=== PATIENT | male | born 1985 | race Caucasian/White ===

== ENCOUNTER 2016-10-24 03:36 | Emergency (ER) | payer OTHER ==
[~2016-10-24] VITALS: Ht 193 cm; Wt 99.6 kg
[2016-10-24 04:18] LABS: HEMATOCRIT 42.4 % (38.0-50.0); MCH 29.4 PG (29.0-34.0); MCHC 34.7 G/DL (30.0-36.0); MCV 84.8 FL (86-99); MEAN PLAT.VOLUME 9.1 uM^3 (9.0-12.4); PLATELET COUNT 271 K/uL (156-360); RBC DIS.WIDTH-CV 12.1 % (11.8-14.6); RBC DIS.WIDTH-SD 36.5 % (39-53); WHITE BLOOD COUNT 8.1 K/uL (4.1-10.2)
[2016-10-24 04:32] LABS: CHLORIDE 106 mEq/L (99-109); POTASSIUM 3.1 mEq/L (3.7-5.4); SODIUM 140 mEq/L (136-147)
[2016-10-24 04:33] LABS: GLUCOSE 92 mg/dL (70-99)
[2016-10-24 04:35] LABS: ANION GAP 14 MEQ/L (2-14)
[2016-10-24 04:37] LABS: GFR ESTIMATE (CALCULATED) > 59 mL/min/
[2016-10-24 04:38] LABS: UREA NITROGEN (BUN) 7 mg/dL (9-23)
[2016-10-24] MEDS ORDERED: VALIUM5 MG PO (05:21)
[2016-10-24 05:29] VITALS: BP 137/82
== END 2016-10-24 05:31 | disposition home or self-care (01) ==
LOC: EME 03:36
PROVIDERS: Emergency Medicine
DX: G40.909 Epilepsy, unspecified, not intractable, without status epilepticus (principal); F41.9 Anxiety disorder, unspecified
CPT/HCPCS: 80048; 80185; 85027; 99281; 99285; J3360; J7030

== ENCOUNTER 2016-11-01 05:09 | Emergency (ER) | payer OTHER ==
[~2016-11-01] VITALS: Ht 193 cm; Wt 97.9 kg
[~2016-11-01 05:09] MED LIST: VALIUM5 MG PO
[2016-11-01 07:18] LABS: BASOPHIL COUNT 0.1 K/uL (0-0.1); EOSINOPHIL (%) 3.5 % (0-5); EOSINOPHIL COUNT 0.3 K/uL (0-0.3); HEMATOCRIT 44.9 % (38.0-50.0); IMMATURE GRANULOCYTE (%) 0.3 % (0.0-0.7); INSTRUMENT ABS NEUTROPHIL CT 4.2 K/uL; LYMPHOCYTE COUNT 2.3 K/uL (1.0-2.8); MCH 29.3 PG (29.0-34.0); MCHC 34.7 G/DL (30.0-36.0); MCV 84.4 FL (86-99); MEAN PLAT.VOLUME 9.6 uM^3 (9.0-12.4); MONOCYTE (%) 7.2 % (3-12); MONOCYTE COUNT 0.5 K/uL (0-0.8); NEUTROPHIL (%) 56.6 % (45-76); NEUTROPHIL COUNT 4.2 K/uL (1.8-6.4); PLATELET COUNT 285 K/uL (156-360); RBC DIS.WIDTH-CV 12.1 % (11.8-14.6); RBC DIS.WIDTH-SD 36.9 % (39-53); RED BLOOD COUNT 5.32 M/uL (4.00-5.50); WHITE BLOOD COUNT 7.4 K/uL (4.1-10.2)
[2016-11-01 07:45] LABS: ANION GAP 8 MEQ/L (2-14); CHLORIDE 105 MEQ/L (99-109); POTASSIUM 3.5 MEQ/L (3.7-5.4); SAMPLE HEMOLYSIS CHECK 0; SAMPLE ICTERIC CHECK 0; SAMPLE LIPEMIA CHECK 0; SODIUM 138 MEQ/L (136-147)
[2016-11-01 07:50] LABS: GFR ESTIMATE (CALCULATED) > 59 mL/min/; GLUCOSE 86 mg/dL (70-99); UREA NITROGEN (BUN) 10 mg/dL (9-23)
[2016-11-01 10:32] VITALS: BP 118/94
[2016-11-01] MEDS ORDERED: VALIUM10 MG PO (17:21)
== END 2016-11-01 10:33 | disposition home or self-care (01) ==
LOC: EME 05:09
PROVIDERS: Emergency Medicine
DX: R56.9 Unspecified convulsions (principal)
CPT/HCPCS: 80048; 80185; 85025; 99281; 99284

== ENCOUNTER 2016-11-01 15:54 | Emergency (ER) | payer OTHER ==
[~2016-11-01] VITALS: Ht 193 cm; Wt 99.6 kg
[2016-11-01 16:28] LABS: HEMATOCRIT 45.9 % (38.0-50.0); MCH 29.8 PG (29.0-34.0); MCHC 35.1 G/DL (30.0-36.0); MEAN PLAT.VOLUME 9.3 uM^3 (9.0-12.4); PLATELET COUNT 317 K/uL (156-360); RBC DIS.WIDTH-CV 12.2 % (11.8-14.6); RBC DIS.WIDTH-SD 37.5 % (39-53)
[2016-11-01 16:38] LABS: CHLORIDE 103 mEq/L (99-109); SODIUM 138 mEq/L (136-147)
[2016-11-01 16:39] LABS: GLUCOSE 89 mg/dL (70-99)
[2016-11-01 16:41] LABS: ANION GAP 9 MEQ/L (2-14)
[2016-11-01 16:43] LABS: GFR ESTIMATE (CALCULATED) > 59 mL/min/
[2016-11-01 16:44] LABS: UREA NITROGEN (BUN) 10 mg/dL (9-23)
[2016-11-01] MEDS ORDERED: VALIUM10 MG PO (17:21)
[2016-11-01 17:31] VITALS: BP 131/93
== END 2016-11-01 17:46 | disposition home or self-care (01) ==
LOC: EME 15:54
PROVIDERS: Emergency Medicine
PROC: 0HQ0XZZ Repair Scalp Skin, External Approach (ICD-10-PCS; principal; 2016-11-01)
DX: S01.01XA Laceration without foreign body of scalp, initial encounter (principal); W18.30XA Fall on same level, unspecified, initial encounter; Y92.830 Public park as the place of occurrence of the external cause; G40.909 Epilepsy, unspecified, not intractable, without status epilepticus; Z88.0 Allergy status to penicillin
CPT/HCPCS: 80048 91; 80185; 85027; 99281; 99284